=== PATIENT | female | born 1950 | race Caucasian/White ===

== ENCOUNTER 2021-05-10 13:50 | Emergency (ER) | payer OTHER, SELFPAY ==
[~2021-05-10] VITALS: Ht 165.1 cm; Wt 104.3 kg
[2021-05-10 14:30] VITALS: BP_SYST 173
--- NOTE | 2021-05-10 14:36 | NUR ---
Patient to ER bed 3 to gown for evaluation. Side rails up. Report given to Denisa.
--- NOTE | 2021-05-10 14:52 | NUR ---
Pt awake, alert and oriented x 3. Reporting SOB and wheezing x several days. Denies asthma hx. PMH HTN and COVID reported. SpO2 96% on room air. Awaiting MD mcgrath.
--- NOTE | 2021-05-10 14:54 | NUR ---
Dr Sorensen to bedside to assess patient
[2021-05-10] MEDS ORDERED: METHYLPREDNISOLONE SOD SUCC 40 MG/ML VIAL IVP ONE (15:00)
[2021-05-10] MEDS ORDERED: hydrALAZINE HCL 20 MG/ML VIAL IVP ONE (15:00)
--- NOTE | 2021-05-10 15:00 | NUR ---
CXR being done at bedside
--- NOTE | 2021-05-10 15:30 | NUR ---
RT at bedside to administer nebulizer treatment
[2021-05-10 15:43] LABS: BASOPHILS # (AUTO) 0.1 K/uL (0.0-0.2); BASOPHILS % (AUTO) 1.2 % (0.0-2.0); EOSINOPHILS # (AUTO) 0.4 K/uL (0.0-0.4); EOSINOPHILS % (AUTO) 4.9 % (0.0-4.0); HEMATOCRIT 40.9 % (36-48); HEMOGLOBIN 13.5 g/dL (12.0-16.0); LYMPHOCYTES # (AUTO) 1.9 K/uL (1.0-5.5); LYMPHOCYTES % (AUTO) 23.8 % (20.5-51.5); MEAN CORPUSCULAR HEMOGLOBIN 27 pg (27-31); MEAN CORPUSCULAR HGB CONC 33 % (32-36); MEAN CORPUSCULAR VOLUME 83 fL (79.0-98.0); MONOCYTES # (AUTO) 0.6 K/uL (0.0-1.0); MONOCYTES % (AUTO) 7.5 % (1.7-9.3); NEUTROPHILS % (AUTO) 62.6 % (40.0-70.0); PLATELET COUNT (AUTO) 253 K/uL (130-430); RED BLOOD CELL COUNT(AUTO) 4.95 MIL/uL (4.2-6.2); RED CELL DISTRIBUTION WIDTH 14.7 % (9.0-15.0)
[2021-05-10] MEDS ORDERED: IPRATROPIUM/ALBUTEROL SULFATE 3 ML AMPUL.NEB (DUONEB) INH ONE (15:45)
--- NOTE | 2021-05-10 15:45 | NUR ---
# 20 gauge angiocath placed to L AC. Use of asceptic technique. Opsite placed over site. Blood return noted. Blood for lab drawn from site. Flushed with 10 cc of normal saline. No evidence of infiltration noted. Patient tolerated well.
[2021-05-10 16:31] LABS: ANION GAP 9 (5-15); CALCIUM 10.4 mg/dL (8.4-11.0); CHLORIDE 105 mmol/L (98-107); CREATININE 0.65 mg/dL (0.55-1.30); GLUCOSE 95 mg/dL (70-99); SODIUM SERUM 142 mmol/L (136-145); UREA NITROGEN, BLOOD 12 mg/dL (8-21)
[2021-05-10 16:38] LABS: ALANINE AMINOTRANSFERASE 26 U/L (12-78); ALBUMIN 3.3 g/dL (3.4-4.8); ASPARTATE AMINOTRANSFERASE 13 U/L (10-37); TOTAL BILIRUBIN 0.3 mg/dL (0.0-1.0)
--- NOTE | 2021-05-10 16:50 | NUR ---
COVID swab collected at bedside and sent to lab
[2021-05-10] MEDS ORDERED: MED4 PO (18:11)
[2021-05-10] MEDS ORDERED: AMOX-426 PO (18:11)
[2021-05-10 18:23] VITALS: BP_SYST 180
--- NOTE | 2021-05-10 18:25 | NUR ---
Patient given written and verbal discharge instructions and verbalizes understanding. ER MD discussed with patient the results and treatment provided. Patient in stable condition. ID arm band removed. IV catheter removed intact and dressing applied, no active bleeding-IV removed per Dr Sorensen. Rx of Medrol and Augmentin given. Patient educated on pain management and to follow up with PMD. Pain scale 0/10. Opportunity for questions provided and answered. Medication side effect fact sheet provided.
== END 2021-05-10 18:23 | disposition home or self-care (01) ==
LOC: SED 13:50
DX: J20.9 Acute bronchitis, unspecified (principal); I10 Essential (primary) hypertension; Z20.822 Contact with and (suspected) exposure to COVID-19
CPT/HCPCS: 36415; 71045; 80053; 83880; 85025; 87426; 94640; 96374; 96375; 99284; J0360; J1030; 99285